=== PATIENT | male | born 1975 | race African-American/Black ===

== ENCOUNTER 2016-10-23 01:23 | Emergency (ER) | payer SELFPAY ==
[~2016-10-23] VITALS: Ht 170.2 cm; Wt 83.9 kg
[2016-10-23 01:35] VITALS: BP 126/84
--- NOTE | 2016-10-23 03:01 | Emergency Room Report ---
History of Present Illness General Chief Complaint: Earache Source: Patient Present Illness HPI Is a 40-year-old male with no past medical history. He presents with chief complaint of tearfulness and mild pain for the last 2 months. Worse in the last few days. Denies any fever chills denies any trauma. No runny nose or congestion. Pain is mostly left side. Denies any other complaint. Allergies: Coded Allergies: No Known Allergies (Unverified , 10/23/16) Patient History Past Medical History: see triage record, old chart reviewed Past Surgical History: other Pertinent Family History: none Social History: Denies: smoking Immunizations: other Reviewed Nursing Documentation: PMH: Agreed, PSxH: Agreed Nursing Documentation-PMH Past Medical History: No Stated History Review of Systems Eye: Denies: eye pain, blurred vision ENT: Reports: ear pain, Denies: nose congestion, throat swelling Respiratory: Denies: cough, shortness of breath Cardiovascular: Denies: chest pain, palpitations Gastrointestinal: Denies: abdominal pain, diarrhea, nausea, vomiting Musculoskeletal: Denies: back pain, joint pain Skin: Denies: rash Neurological: Denies: headache, numbness Endocrine: Denies: increased thirst, increased urine Hematologic/Lymphatic: Denies: easy bruising All Other Systems: negative except mentioned in HPI Physical Exam Vital Signs Date Time Temp Pulse Resp B/P (MAP) Pulse Ox O2 Delivery O2 Flow Rate FiO2 10/23/16 01:28 98.2 71 20 126/84 98 Room Air vitals normal Sp02 EP Interpretation: reviewed, normal General Appearance: well appearing, no apparent distress, alert Head: normocephalic, atraumatic Eyes: bilateral eye PERRL, bilateral eye EOMI ENT: hearing grossly normal, normal pharynx, other - Bilateral ear impacted with cerumen Neck: full range of motion, supple, no meningismus Respiratory: chest non-tender, lungs clear, normal breath sounds Cardiovascular #1: regular rate, rhythm, no murmur Gastrointestinal: normal bowel sounds, non tender, no mass, no organomegaly, no bruit, non-distended Musculoskeletal: back normal, gait/station normal, normal range of motion Psychiatric: mood/affect normal Skin: warm/dry Procedures Additional Procedure Procedure Narrative Procedure: Cerumen disimpaction Indication: Cerumen impaction Description: Using an 18-gauge angiocatheter, I irrigated both ear canal. There is loosened the cerumen and I was able to remove it with a curette. There is large cerumen impacted bilaterally. TMs normal. No perforation. Patient felt better. Symptom resolved. Patient tolerated procedure without a problem. Medical Decision Making Diagnostic Impression: Primary Impression: Bilateral impacted cerumen ER Course Patient presents with bilateral cerumen impaction. No perforation. No otitis media or externa. We'll discharge home. Last Vital Signs Date Time Temp Pulse Resp B/P (MAP) Pulse Ox O2 Delivery O2 Flow Rate FiO2 10/23/16 01:35 98.2 67 20 126/84 98 Room Air Status: improved Disposition: HOME, SELF-CARE Condition: Stable Additional Instructions: Followup with your Dr. in 7 days as needed. Return it worse. NELSON LUNA M.D. Oct 23, 2016 03:01
[2016-10-23 03:07] VITALS: BP 126/84
== END 2016-10-23 03:06 | disposition home or self-care (01) ==
LOC: EMR 02:40
DX: H61.23 Impacted cerumen, bilateral (principal)
CPT/HCPCS: 69210; 99282